=== PATIENT | female | born 2000 | race Two or more races ===

== ENCOUNTER 2025-02-14 15:12 | Inpatient (IN) | payer OTHER ==
[~2025-02-14] VITALS: Ht 167.6 cm; Wt 145.1 kg
[2025-02-14] MEDS ORDERED: DILTIAZEM HCL 25 MG/5 ML VIAL IV ONE ×2 (16:47→17:00)
[2025-02-14] MEDS ORDERED: 0.9 % SODIUM CHLORIDE 1,000 ML IV SCH ×2 (17:00→20:00)
[2025-02-14] MEDS ORDERED: ENOXAPARIN SODIUM 60 MG/0.6 ML SYRINGE SUBCUTANEO ONE (17:11)
[2025-02-14] MEDS ORDERED: DILTIAZEM HCL 125 MG in 0.9 % SODIUM CHLORIDE 125 ML IV SCH (17:15)
[2025-02-14] MEDS ORDERED: ENOXAPARIN SODIUM 100 MG/ML SYRINGE SUBCUTANEO ONE (17:15)
[2025-02-14 17:21] LABS: BASO % 0.4 % (0.1-1.2); EOS # 0.13 (0.04-0.54); EOS % 1.0 % (0.7-7.0); LYMPH # 5.10 (1.18-3.74); LYMPH % 40.7 % (19.3-53.1); MEAN PLATELET VOLUME 10.30 fl (9.4-12.4); MONO # 1.05 (0.24-0.82); MONO % 8.4 % (4.7-12.5); NEUT # 6.18 (1.56-6.13); NEUT % 49.3 % (34.0-71.1); RED CELL DISTRIBUTION WIDTH 13.6 % (11.6-14.4)
[2025-02-14 17:37] LABS: INR 1.0
[2025-02-14 17:43] LABS: ALT/SGPT 19.0 U/L (12-78); AST/SGOT 7.0 U/L (15-37); BILIRUBIN TOTAL 0.19 mg/dL (0.3-1.2); BUN CREA RATIO 18.0 (7.0-25.0); CREATININE SERUM 0.73 mg/dL (0.55-1.02); GFR 97.94; GLOBULINA 3.0 G/DL (2.4-3.5); GLUCOSE FASTING 102.0 mg/dL (65-100); LDH 149.0 U/L (84-246); OSMOLALITY SERUM 291.0 MOSM/KG (275-295); PHOSPHOKINASE CREATININE 58.0 U/L (26-192)
[2025-02-14 18:48] LABS: URINE APPEARANCE Clear; URINE BILIRRUBIN Negative (NEGATIVE); URINE BLOOD Small; URINE COLOR Yellow; URINE GLUCOSE Negative (NEGATIVE); URINE KETONE Negative (NEGATIVE); URINE LEUKOCYTE Trace; URINE NITRATE Negative; URINE PROTEIN Negative (NEGATIVE); URINE UROBILINOGEN 0.2 E.U./dl
[2025-02-14 18:51] LABS: URINE BACTERIA 4762.5 uL (0.0-1933); URINE EPITHELIAL CELLS 16.7 uL (0.0-38.8); URINE RBC 3.9 uL (0.0-20.8); URINE WBC 41.2 uL (0.0-23.2)
[2025-02-14 18:56] LABS: URINE CAST 0.58 uL (0.0-1.40)
[2025-02-14] MEDS ORDERED: CEFTRIAXONE SODIUM 2,000 MG in 0.9 % SODIUM CHLORIDE 100 ML IV SCH (20:03)
[2025-02-14] MEDS ORDERED: ACETAMINOPHEN 500 MG GEL..CAP PO PRN (20:15)
[2025-02-14] MEDS ORDERED: CEFTRIAXONE SODIUM 2,000 MG VIAL ONE (21:30)
[2025-02-14 22:12] VITALS: BP 117/76; O2SAT 99
[2025-02-14 22:20] LABS: COVID-19 AG NEGATIVE (NEGATIVE)
[2025-02-14 23:44] VITALS: BP 131/81; O2SAT 100
[2025-02-15] VITALS (18 sets, daily range): BP systolic 100–147; BP diastolic 64–98; O2SAT 97–100
[2025-02-15 06:16] LABS: COCAINE NEGATIVE (NEGATIVE); METHADONE NEGATIVE (NEGATIVE); OPIATES NEGATIVE (NEGATIVE); THC ( Cannabinoids) NEGATIVE (NEGATIVE)
[2025-02-15 07:08] LABS: CHOL HDL RATIO 4.2 (0-5.0); HDL 40.0 mg/dl (40-60); LDL 109.0 mg/dl (0-130); VLDL 16.0 (0-39)
[2025-02-15] MEDS ORDERED: SODIUM CHLORIDE 0.45 % 1,000 ML IV SCH (08:45)
[2025-02-15] MEDS ORDERED: ENOXAPARIN SODIUM 100 MG/ML SYRINGE SUBCUTANEO SCH (09:00)
[2025-02-15] MEDS ORDERED: FAMOTIDINE/PF 20 MG in 0.9 % SODIUM CHLORIDE 8 ML IV PUSH SCH (09:00)
[2025-02-16] VITALS (19 sets, daily range): BP systolic 109–134; BP diastolic 58–90; O2SAT 95–100
[2025-02-16 05:22] LABS: BASO % 0.4 % (0.1-1.2); EOS # 0.17 (0.04-0.54); EOS % 1.6 % (0.7-7.0); LYMPH # 3.56 (1.18-3.74); LYMPH % 34.5 % (19.3-53.1); MEAN PLATELET VOLUME 10.30 fl (9.4-12.4); MONO # 0.89 (0.24-0.82); MONO % 8.6 % (4.7-12.5); NEUT # 5.64 (1.56-6.13); NEUT % 54.7 % (34.0-71.1); RED CELL DISTRIBUTION WIDTH 13.6 % (11.6-14.4)
[2025-02-16 07:49] LABS: ALT/SGPT 19.0 U/L (12-78); AST/SGOT 8.0 U/L (15-37); BILIRUBIN TOTAL 0.35 mg/dL (0.3-1.2); BUN CREA RATIO 25.0 (7.0-25.0); CREATININE SERUM 0.48 mg/dL (0.55-1.02); GFR 157.58; GLOBULINA 3.0 G/DL (2.4-3.5); GLUCOSE FASTING 91.0 mg/dL (65-100); OSMOLALITY SERUM 281.0 MOSM/KG (275-295)
[2025-02-16] MEDS ORDERED: FAMOTIDINE/PF 20 MG/2 ML VIAL ONE (07:58)
[2025-02-16] MEDS ORDERED: ENOXAPARIN SODIUM 40 MG/0.4 ML SYRINGE SUBCUTANEO ONE (07:58)
[2025-02-16] MEDS ORDERED: ENOXAPARIN SODIUM 40 MG/0.4 ML SYRINGE SUBCUTANEO SCH (09:00)
[2025-02-16] MEDS ORDERED: METOPROLOL SUCCINATE 25 MG TAB.SR.24H PO SCH (10:46)
[2025-02-16] MEDS ORDERED: METOPROLOL TARTRATE 25 MG TABLET PO ONE (11:21)
[2025-02-17 01:33] VITALS: BP 113/73; O2SAT 97
[2025-02-17 05:15] VITALS: O2SAT 95
[2025-02-17 09:18] VITALS: O2SAT 96
[2025-02-17 10:15] VITALS: BP 122/87; O2SAT 97
[2025-02-17] MEDS ORDERED: TOPROL XL25 M1 PO (10:31)
== END 2025-02-17 11:51 | disposition home or self-care (01) | DRG 309 ==
LOC: ER 17:28 → ICU-2 20:10 → MEDJ 02-16 20:54
PROVIDERS: General Practice; Internal Medicine Infectious Disease; ADMIT Internal Medicine; ATTEND Internal Medicine
PROC: B24BYZZ Ultrasonography of Heart with Aorta using Other Contrast (ICD-10-PCS; principal; 2025-02-14)
PROC: 4A12X4Z Monitoring of Cardiac Electrical Activity, External Approach (ICD-10-PCS; 2025-02-16)
DX: I48.91 Unspecified atrial fibrillation (principal); N39.0 Urinary tract infection, site not specified; I47.10 Supraventricular tachycardia, unspecified; E66.813 Obesity, class 3